=== PATIENT | female | born 1980 | race Caucasian/White ===

== ENCOUNTER 2017-01-19 10:51 | Emergency (ER) | payer MEDICAID ==
[~2017-01-19] VITALS: Ht 170.2 cm; Wt 90.7 kg
--- OUTSIDE RECORDS SUMMARY | 2017-01-19 10:59 | External Medical Summary Rpt | CCD ---
Author Author [employer] Organization [employer] Address Unknown Phone Unavailable Purpose Continuity of Care Document - through 2016
--- OUTSIDE RECORDS SUMMARY | 2017-01-19 10:59 | External Medical Summary Rpt | CCD ---
Author Author , STEFAN AVILES Address Unknown Phone [email or web address] Purpose Continuity of Care Document - through 2016
--- OUTSIDE RECORDS SUMMARY | 2017-01-19 10:59 | External Medical Summary Rpt ---
Author Author STEFAN Koehler, [employer] Organization [employer] Address Unknown Phone Unavailable
--- OUTSIDE RECORDS SUMMARY | 2017-01-19 10:59 | External Medical Summary Rpt | CCD ---
Demographics Preferred Language Tajik Marital Status Unknown Restorationist Affiliation Unknown Race Unknown Ethnic Group Unknown Author Author , STEFAN AVILES Address Unknown Phone Immunization No patient found.
--- OUTSIDE RECORDS SUMMARY | 2017-01-19 10:59 | External Medical Summary Rpt | CCD ---
Demographics Preferred Language Belarusian Marital Status Unknown Pentecostal Affiliation Unknown Race Unknown Ethnic Group Unknown Author Author , STEFAN AVILES Address Unknown Phone Immunization No patient found.
--- OUTSIDE RECORDS SUMMARY | 2017-01-19 10:59 | External Medical Summary Rpt | CCD ---
Author Author , STEFAN AVILES Address Unknown Phone [email or web address] Purpose Continuity of Care Document - through 2016
--- NOTE | 2017-01-19 11:34 | Urgent Treatment Center Report ---
See Addendum History of Present Issue Date/Time Seen by Provider 01/19/17 1134 Visit Reason Pt arrived:Walked Presenting Problem:COUGH, CONGESTION, SORE THROAT Location if Accident: Onset of symptoms date/time:/ or onset unknown for:MEDICAL HX UNKNOWN Have you (or family members/close friends) recently traveled outside the [place]? N If Yes, where/when: Have you had exposure to infectious disease within the past month? TB? Other? Specify: Here w/ due to cough, chest congestion, mild occasional SOA, chills, head congestion, sinus pressure, abhilash ear pressure. No fevers. Cough worse at night and associated with wheezing. + tobacco use. No known fevers. Spouse with same symptoms x 4 days. Pt reports her started 1.5 weeks ago. Was immediately seen at clinic and started on zpack. Off zpack x1week without improvement. No worse but no better either. Source patient Exam Limitations no limitations ALLERGIES Coded Allergies: Penicillins (Mild, 01/19/17) acetaminophen (From [facility]) (Mild, 01/19/17) hydrocodone (From [facility]) (Mild, 01/19/17) History Medical History General CAD? No Angina: No AK: No Hypertension? Yes Hyperlipidemia? No CHF? No DVT? No PE? No COPD? No Asthma? No Anemia? No GERD? No Gastric ulcers? No GI Bleed? No Hernia? No Thyroid Problems? No Hypothyroidism? No CVA? No Seizures? No Diabetes? No Renal Insuffiency? No UTI? No Stones? No BPH? No GB Disease: No Nephritic Syndrome? No Asplenia? No Hepatitis? No Sickle Cell Disease? No Arthritis? No Migraines? No Cataracts? No Glaucoma? No MRSA? No HIV? No TB? No Anxiety? No Depression? No Cancer? No More? No Immunization HX DT/Tetanus 1-4 Years Ago Surgical Hx Previous Surgery?N Social History Smoking Hx Smoker: Current Every Day Smoker Tobacco: Yes Type Cigarettes Review of Systems All Other Systems Reviewed and Negative Constitutional see HPI Eyes denies drainage ENT see HPI, throat pain (with cough). denies: ear discharge, throat swelling. Respiratory see HPI Cardiovascular denies chest pain, denies palpitations Gastrointestinal denies no symptoms reported Musculoskeletal denies joint pain Skin denies rash Psychiatric/Neurological headache ("so much pressure") Physical Exam Vital Signs Vital Signs Date Time Temp Pulse Resp B/P Pulse O2 O2 Flow FiO2 Ox Delivery Rate 01/19 1200 98.4 96 16 147/98 98 01/19 1100 98.4 96 16 147/98 98 General Appearance normal appearance, no apparent distress Eye Exam - bilateral eye normal exam Ear, Nose, Throat abhilash EACs unremarkable, abhilash TMs normal w/ exception of clear fluid behind TMs without bulging, normal pharynx, abhilash maxillary sinus tenderness Neck non-tender, supple Respiratory Status Yes: trachea midline, chest symmetrical, non productive cough (freq, worse with deep breaths). No: respiratory distress, use of accessory muscles, pain on inspiration, pain on expiration. Lung Sounds anterior: lungs clear. posterior: lungs clear. bilateral: lungs clear. Cardiovascular regular rate/rhythm, no peripheral edema, no murmur Neurologic alert, oriented x 3 Mental status normal mood/affect Skin normal color, warm/dry Lymphatic no adenopathy Medical Decision Making LABS/Meds/Orders Pt receiving controlled substance in ED? No Results/Orders Laboratory Tests 01/19/17 1105: Group A Strep Screen NOT DETECTED Current Medication Orders Sig/[place] Start time Last Medication Dose Route Stop Time Status Admin Methylprednisolone 125 MG ONCE ONE 01/19 1200 DC Sodium Succinate IM 01/19 1201 Methylprednisolone 0 .STK-MED ONE 01/19 1155 DC Sodium Succinate .ROUTE Methylprednisolone 0 .STK-MED ONE 01/19 1152 DC Sodium Succinate .ROUTE Orders Procedure Date/time Status [facility] STREP SCREEN 01/19 1105 Complete Departure Departure Time of Disposition 1148 Disposition DC Home or Self Care(routine) Clinical Impression Primary Impression: Acute bronchitis Qualifiers: Bronchitis organism: unspecified organism Qualified Code: J20.9 - Acute bronchitis, unspecified Secondary Impressions: Sinusitis Qualifiers: Sinusitis location: maxillary Chronicity: acute Recurrence: non- recurrent Qualified Code: J01.00 - Acute maxillary sinusitis, unspecified Condition STABLE Referrals MARISOL WISE (Family) IMMEDIATELY for new or worsening symptoms OR no noticeable improvement over the next 48-72 hours. 911 for difficulty breathing. Patient Instructions DI for Acute Bronchitis, DI for Sinusitis Additional Instructions * STOP SMOKING!!!! * No antibotic today. Likely viral. Try this plan of care and if no improvement or getting worse, be sure to follow up. * Monitor Temp. Seek treatment if fevers develop * humidifier/vaporizer/hot steamy shower * Inhaler every 4-6 hours as needed like we discussed. If unsure how to use it, ask pharmacist to demonstrate how. Should help open airways and improve cough, wheezing, shortness of breath. * Mucinex during the day for your cough and cough suppressant only at night. Be sure to drink lots of water. Insurance may not cover a prescription of mucinex. Might be cheaper to get 400mg tablets and take 2 tablets morning, midday and evening all with lots of water. * Promethazine DM cough syrup will cause drowsiness. Use it only at night. No driving, operating machinery or caring for small children after taking it. * Start steroid tomorrow. Helps with inflammation therefore, cough and wheezing. Follow directions on package. Rvwd side effects. Monitor your blood pressure and if remains >140/90, stop the steroid and follow up with primary care. Pt reports they have taken them before. Discharge Counseling Counseled pt/family regarding diagnosis, test results, medications/RX, home care, follow up needs Prescriptions Current Visit Scripts ALBUTEROL (Proventil Hfa Inhaler) 1-2 PUFF IH Q4-6H PRN PRN SOA, wheezing #1 CAN Prednisone (Prednisone 20MG) 20 MG PO BID #10 TAB PROMETHAZINE/DEXTROMETHORPHAN (Promethazine-Dm Syrup) 10 ML PO QHSP PRN cough #120 ML Comments At discharge, pt reports she thought she needed an antibiotic because she is from a generation where she has always got them and therefore, has no immunity to fight off her own illnesses so needs antibiotics. Lengthy discussion about antibiotics, virus vs bacterial and resistance. Now reporting veronika did help her red sore throat and abhilash ear pain w/ fluid. Willing to try this plan of care for 48 hours but if no improvement or starts running fevers, aware we will reevlauate need for antibiotic. + understanding and agrees. at 1227
[2017-01-19] MEDS ORDERED: PROMETHAZINE D118 ML PO (11:52)
[2017-01-19] MEDS ORDERED: PREDNISONE 20MG20 MG PO (11:52)
[2017-01-19] MEDS ORDERED: PROVENTIL0.09 MG/A1 IH (11:52)
[2017-01-19 12:00] VITALS: BP 147/98
== END 2017-01-19 12:00 | disposition home or self-care (01) ==
LOC: UTC 10:51
DX: J20.9 Acute bronchitis, unspecified (principal); J01.00 Acute maxillary sinusitis, unspecified; I10 Essential (primary) hypertension; F17.210 Nicotine dependence, cigarettes, uncomplicated; Z88.0 Allergy status to penicillin